=== PATIENT | female | born 1985 | race Caucasian/White ===

== ENCOUNTER 2021-09-26 09:29 | Outpatient (CLI) | payer BC, MEDICAID, SELFPAY ==
--- NOTE | 2021-09-26 09:45 | CRLHL7_ITS ---
For Patients: As a result of the Cures Act, medical imaging exams and procedure reports are released immediately into your electronic medical record. You may view this report before your referring provider. If you have questions, please contact your health care provider. INDICATION: Dates/viability. TECHNIQUE: Ultrasound OB pelvis abdominal. Real-time godoy-scale imaging of the pelvis was performed. COMPARISON: None. FINDINGS: There is a single intrauterine gestation. The embryo demonstrates a regular cardiac rate measuring 157 beats per minute. The embryo`s crown rump length measurement of 6.8 cm corresponds to a gestational age of 13 weeks 1 day with a sonographic due date of 04/02/2022. Yolk sac not visualized. There are no gross abnormalities noted within the embryo at this early state of development. The placenta has not yet developed. There is no sign of perigestational hemorrhage. The ovaries are of normal size. Right ovary measures 4.8 x 3.5 x 1.7 cm. Left ovary measures 3.9 x 3.9 x 2.1 cm. There are no suspicious fluid collections noted in the cul-de-sac. IMPRESSION: Single viable intrauterine measuring 13 weeks 1 day. Estimated date of delivery 04/02/2022. No abnormalities seen. Dictated by Ian Reyes MD @ 09/26/2021 10:53:16 AM (Electronically Signed)
== END 2021-09-26 09:30 | disposition home or self-care (01) ==
LOC: US 09:33
PROVIDERS: PCP Physician Assistant Medical; Visit Provider Advanced Practice Midwife
DX: Z34.91 Encounter for supervision of normal pregnancy, unspecified, first trimester (principal); Z3A.13 13 weeks gestation of pregnancy
CPT/HCPCS: 76801

== ENCOUNTER 2021-10-02 15:17 | Outpatient (CLI) | payer BC, MEDICAID, SELFPAY ==
[2021-10-02 18:02] LABS: Hepatitis B Surface Antigen* Negative (Negative)
[2021-10-02 18:12] LABS: HIV 1/2/P24 Combo Screen* Negative (Negative)
[2021-10-02 18:19] LABS: Hepatitis C Virus Antibody* Negative (Negative)
[2021-10-05 00:54] LABS: Rapid Plasma Reagin (RPR) Non Reactive (Non Reactive)
[2021-10-05 01:56] LABS: Rubella Antibody IgG 21.2 IU/mL
== END 2021-10-02 15:18 | disposition home or self-care (01) ==
PROVIDERS: PCP Physician Assistant Medical; Visit Provider Advanced Practice Midwife
DX: O09.522 Supervision of elderly multigravida, second trimester (principal); Z3A.14 14 weeks gestation of pregnancy
CPT/HCPCS: 86592; 86703; 86762; 86787; 86803; 86850; 86900; 86901; 87086; 87340

== ENCOUNTER 2021-10-03 09:29 | Outpatient (CLI) | payer BC, MEDICAID, SELFPAY ==
[2021-10-03 13:14] LABS: Chlamydia DNA Amplified* NOT DETECTED (No Detected); GC DNA Amplified* NOT DETECTED (No Detected)
== END 2021-10-03 09:30 | disposition home or self-care (01) ==
LOC: NFLDREF 09:29
PROVIDERS: PCP Physician Assistant Medical; Visit Provider Advanced Practice Midwife
DX: O09.522 Supervision of elderly multigravida, second trimester (principal)
CPT/HCPCS: 87491; 87591

== ENCOUNTER 2021-11-21 09:06 | Outpatient (CLI) | payer BC, OTHER, SELFPAY ==
--- NOTE | 2021-11-21 09:15 | CRLHL7_ITS ---
For Patients: As a result of the Century Cures Act, medical imaging exams and procedure reports are released immediately into your electronic medical record. You may view this report before your referring provider. If you have questions, please contact your health care provider. INDICATION: Evaluate anatomy. COMPARISON: 09/26/2021 TECHNIQUE: Real time godoy scale imaging of the fetus was performed as well as color Doppler analysis of the umbilical vessels. FINDINGS: Sonographic imaging demonstrates a single living intrauterine gestation. Fetus demonstrates a regular cardiac rate of 158 beats per minute. Fetus has a transverse position, head maternal right. The placenta lies posteriorly without evidence of placenta previa. The edge of the placenta is located 2.8 cm from the internal cervical os. Amniotic fluid volume appears normal. Single deepest vertical pocket: 3.3 cm. The cervix is closed and measures 4.5 cm in length. The composite ultrasound gestational age is calculated at 21 weeks 5 days with an estimated sonographic due date of 03/29/2022. The estimated weight is 427 grams which lies at the 63rd %. The following biometric measurements were obtained: Biparietal diameter: 5.2 cm/21 weeks 5 days 72nd% Head circumference: 19.2 cm/21 weeks 3 days 56th% Abdominal circumference: 16.4 cm/21 weeks 3 days 54th% Femur length: 3.6 cm/21 weeks 3 days 52nd% The HC/AC ratio measures: 1.17 range (1.06-1.24) On anatomic survey, there is a normal appearance of the cerebral ventricles, cavum septi pellucidi, cisterna magna and cerebellum. The nose, lips, and facial profile appear normal. The cervical, thoracic and lumbar spine are well visualized and appear normal. Incomplete visualization of the outflow tracts due to position. Four-chamber heart normal. The diaphragm and stomach appear normal. The kidneys and bladder also appear normal. There is a normal three-vessel cord and cord insertion site. The four extremities appear normal. IMPRESSION: Concordance of clinical and sonographic dating. Incomplete visualization of the outflow tracts. Short-term follow-up recommended. Remainder of the anatomic survey is normal. Dictated by Jimenez Goins MD @ 11/21/2021 10:59:49 AM (Electronically Signed)
== END 2021-11-21 09:07 | disposition home or self-care (01) ==
PROVIDERS: PCP Physician Assistant Medical; Visit Provider Advanced Practice Midwife
DX: Z34.92 Encounter for supervision of normal pregnancy, unspecified, second trimester (principal); Z3A.21 21 weeks gestation of pregnancy
CPT/HCPCS: 76805

== ENCOUNTER 2021-12-04 09:15 | Outpatient (CLI) | payer BC, MEDICAID, SELFPAY ==
--- NOTE | 2021-12-04 09:15 | CRLHL7_ITS ---
For Patients: As a result of the Century Cures Act, medical imaging exams and procedure reports are released immediately into your electronic medical record. You may view this report before your referring provider. If you have questions, please contact your health care provider. OBSTETRICAL ULTRASOUND FOLLOW-UP, 12/04/2021 CLINICAL HISTORY: Follow-up on missed anatomy (heart views). 3, para 2. KAILA by Ultrasound: 04/02/2022 Gestational Age: 23 weeks 0 days TECHNIQUE: Transabdominal pelvic ultrasound. FINDINGS: Cervix: Not visualized position: Vertex Amniotic fluid: 5.7 cm SDP Placenta position: Fundal, posterior, right wall heart rate: 152 bpm IMPRESSION: Single live intrauterine gestation with composite gestational age of 20 weeks 0 days and KAILA of 04/02/2022. Out flow tracts and 4 chamber views appear unremarkable. ARACELY CARABALLO M.D. Diagnostic/Breast Radiologist [email or web address] Transcribed: 1:[address]/Dictated by: Aracely Caraballo MD @ 12/04/2021 10:39:00 AM (Electronically Signed)
== END 2021-12-04 09:16 | disposition home or self-care (01) ==
LOC: US 09:15
PROVIDERS: PCP Physician Assistant Medical; Visit Provider Advanced Practice Midwife
DX: O36.8320 Maternal care for abnormalities of the fetal heart rate or rhythm, second trimester, not applicable or unspecified (principal)
CPT/HCPCS: 76815; 76816

== ENCOUNTER 2022-01-09 08:44 | Outpatient (CLI) | payer BC, MEDICAID, SELFPAY ==
[2022-01-10 10:21] LABS: Rapid Plasma Reagin (RPR) Non Reactive (Non Reactive)
== END 2022-01-09 08:45 | disposition home or self-care (01) ==
LOC: NFLDREF 08:45
PROVIDERS: PCP Physician Assistant Medical; Visit Provider Advanced Practice Midwife
DX: Z34.83 Encounter for supervision of other normal pregnancy, third trimester (principal); Z3A.28 28 weeks gestation of pregnancy
CPT/HCPCS: 86592

== ENCOUNTER 2022-02-27 11:45 | Outpatient (RCR) | payer BC, MEDICAID, SELFPAY | END 2022-05-07 15:03 | disposition home or self-care (01) | PROVIDERS: PCP Physician Assistant Medical; Visit Provider Advanced Practice Midwife | DX: M54.9 Dorsalgia, unspecified (principal); Z51.89 Encounter for other specified aftercare | CPT/HCPCS: 97110; 97112; 97140; 97162 ==

== ENCOUNTER 2022-03-13 09:40 | Outpatient (CLI) | payer BC, MEDICAID, SELFPAY ==
[2022-03-14 13:50] LABS: Strep B DNA Probe NEGATIVE (Negative)
[2022-03-14 14:15] LABS: Strep B Pen/Amox Allergy No
== END 2022-03-13 09:41 | disposition home or self-care (01) ==
PROVIDERS: PCP Physician Assistant Medical; Visit Provider Advanced Practice Midwife
DX: O09.523 Supervision of elderly multigravida, third trimester (principal); Z3A.37 37 weeks gestation of pregnancy
CPT/HCPCS: 87081; 87653

== ENCOUNTER 2022-04-09 09:28 | Outpatient (CLI) | payer BC, MEDICAID, SELFPAY ==
--- NOTE | 2022-04-09 09:45 | CRLHL7_ITS ---
For Patients: As a result of the Century Cures Act, medical imaging exams and procedure reports are released immediately into your electronic medical record. You may view this report before your referring provider. If you have questions, please contact your health care provider. INDICATION: POST DATES COMPARISON: none TECHNIQUE: Real time godoy scale imaging of the fetus was performed. Without non-stress testing. FINDINGS: Sonographic imaging demonstrates a single living intrauterine gestation. Fetus demonstrates a regular cardiac rate of 143 beats per minute. Fetus has a vertex position. The amniotic fluid volume appears normal and there is a single deepest pocket measurement of 4.8 cm. The fetus was active and demonstrated normal breathing movements. There was normal flexion and extension of the trunk and extremities. IMPRESSION: Normal biophysical profile score of 8 out of 8. Dictated by Jimenez Goins MD @ 04/09/2022 11:07:09 AM (Electronically Signed)
== END 2022-04-09 09:29 | disposition home or self-care (01) ==
LOC: US 09:29
PROVIDERS: PCP Physician Assistant Medical; Visit Provider Advanced Practice Midwife
DX: O48.0 Post-term pregnancy (principal); Z3A.41 41 weeks gestation of pregnancy
CPT/HCPCS: 76819

== ENCOUNTER 2022-04-13 05:08 | Inpatient (IN) | payer BC, MEDICAID, SELFPAY ==
[2022-04-13] VITALS (25 sets, daily range): BP systolic 101–162; BP diastolic 61–87; PULSE 76–107; RESP 14–18; TEMP 36.6–37.2; O2SAT 96–98; BMI 28.5
--- NOTE | 2022-04-13 05:16 | P.LDBA_ITS ---
Subjective History of Present Illness Date Seen: 04/13/22 Narrative: Patient is being admitted to Labor and Delivery for active labor post . She is a 36 year old at 41.2 weeks gestation. Her full history and physical was dictated by Tito Palm CNM and ZULEIKA Castro on 03/13/22. Please see this for details. She began mauro regularly around 1999 last evening. they have been increasing in frequency overnight. She denies leaking fluid and has noticed a scant amount of bloody show. She is appreciating good movement. 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 Incomplete anatomy scan, outflow tracts not seen, heart WNL. F/u u/s 12/04/21 - heart well visualized, all WNL - reviewed w/ pt at appointment OB - Problem Based A/P Additional Plan (1) Post-dates : Status: Acute (2) AMA (advanced maternal age) multigravida 35+: Status: Acute Plan ASSESSMENT:? at 41.2 weeks gestation? GBS negative Uncomplicated ? Labor postterm ?? PLAN:? 1. Candidate for analgesia of choice. Planning unmedicated .? 2. Anticipate ? 3. Expectant management at this time.? 4. No IV necessary at this time.Consider placement if condition changes. 5. Intermittent monitoring after a reactive tracing per unit policy. ? ? Delivery/Labor/Induction Plan Plan: expectant management OB Result Labs Blood Type: A (+) positive GBS Status: negative OB Exam Physical Exam Vital signs: Pulse BP Pulse Ox 105 H 160/87 H 96 04/13/22 04:56 04/13/22 04:56 04/13/22 04:55 Narrative: Vitals per EMR? Psychiatric:? Alert and oriented x3? HEENT:? Normocephalic, atraumatic? Neck:? Supple without adenopathy or thyromegaly? Lungs:? Clear to auscultation bilaterally? Heart:? Regular rate and rhythm, no murmur, rub or gallop? Abdomen:? Soft, nontender, and gravid? Extremities:? No edema or erythema? Detailed Labor and Delivery Exam Patient Gravid: Yes Dilation (cm): 7 Effacement (%): 90 Cervix position: mid Consistency: soft Contraction Frequency: 2-4 Tachysystole: No Contraction intensity: Strong/Firm Fetus (Single) Station: -2 Position: Other (vertex) Amniotic Membrane Status: intact (bulging) Heart Rate Baseline: 125 Monitor Accelerations: Present Monitor Decelerations: Variable [facility] Variability: Moderate (6-25)
[2022-04-13] MEDS: OXYTOCIN 10 UNIT/ML INJ IM (09:02)
[2022-04-13] MEDS: LIDOCAINE 1 % PF 30 ML INJECTION (09:45)
--- NOTE | 2022-04-13 10:16 | PM.OBPRCVD ---
Documented by User: Maria Isabel Manrique CNM 04/13/22 14:40 Procedure Delivery date: 04/13/22 Procedure Done: Global Procedure Details: Patient is a 36 year-old G3 now P3 admitted on 04/13/22 at 41 Weeks, 2 Days gestation for active labor.? Cervical exam on admission was 7 cm/90 % effaced/-2 station with membranes intact in vertex presentation.? Contractions were every 3-4 minutes.? heart rate demonstrated baseline 120 bpm with moderate variability, - accelerations (10x10 accels only), - decelerations; a category 1 tracing.? SROM occurred at 0535 with clear fluid.?She labored in the tub for a while and when she felt the urge to push she exited the tub and sat on the birthing stool. She labored on the birthing stool. hands and knees, standing and on her side. She declined a SVE when she first starting feeling the urge to push. After about 30-45 minutes of pushing some labial separation was noted with pushing. However about 0800 she requested to be checked as she was tired, feeling discouraged and feeling like she wasn't making progress. Baby was found to still be in a +2 station at that time. Position changes were encouraged including sitting on the toilet, puppy pose, lift and tucks, and more. She continued to labor and did get back into the tub after this for about 15 minutes. She then felt uncomfortable in the tub and got out and went back to the birthing stool. She then started to feel a stronger urge and more pressure. Shortly after she was found to be crowing and delivered in 1 push after. A loose nuchal cord was discovered after of the head but baby was delivered before it could be reduced. It easily slipped down the body. She walked to the bed after the baby was delivered per her request. The placenta delivered easily but did have trailing membranes that were teased out with a ring forceps. There was a large tear discovered on inspection that was suspicious for a 3rd degree so the on-call MD was called to the room to consult. It was determined to be a 3rd degree and was repaired by Dr. Watson. ?? Labor Analgesia:? None? ?? Pitocin:? Yes after delivery only? ?? Labor onset:? 04/12/22 at 2000? ?? Complete:? presumed complete with pushing? ?? Pushing:? 0633? ?? heart tones during second stage were category 2. Moderate variability, variables with good return to baseline. Decision to remove monitor and Doppler after a period of good tracing.? ?? At 0857 a viable male delivered in vertex NABIL presentation over intact perineum via spontaneous vaginal delivery.? was placed on maternal abdomen.? Cord was clamped and cut after >5 minute delay.? Infant weight pending.? 8 at 1 minute and 9 at 5 minutes.? Shoulder dystocia: no.? Nuchal cord: yes x1, delivered through the cord.? ?? Placenta delivered spontaneously and complete at 0906 with a 3 vessel cord.?She had trailing membranes that were teased out with a ring forceps. It appeared as though they all came out intact. ?? Mother and were stable after delivery.? ?? Lacerations:? 3rd degree, repaired by Dr. Watson. see her note for details.? ?? Blood loss: 550 mL.? Blood loss measurement type: QBL 500, EBL 50? Sponge and needles counts are correct.? Events: AMA Intrapartal Events: None Delivery monitor: external FHT and external uterine Route of delivery: Episiotomy description: None Laceration description: Perineal - 3rd Degree (repaired by Dr. Watson) Delivery repair: Vicryl Estimated blood loss (mL): 550 Anesthesia type: None Disposition: floor [place] Infant Gender: Male presentation: vertex Placental Delivery Description: Spontaneous Cord Description: 3 Vessels, Nuchal Cord (delivered through) and Loose OB Vag Delivery Procedures Additional Procedures NST: Yes Laceration Repair: Yes Documented by User: Maria Isabel Watson DO 04/13/22 11:48 Procedure Narrative: Perineum and vagina injected with 40 mL of lidocaine to allow for proper and thorough examination of laceration. arterial blood vessel was identified to be actively bleeding into the retracted portion of levator ani muscle space. 3 degree vaginal / perineal laceration repaired with approximation of levator ani muscle X 3 figure of eight stitches of 2-0 vicryl. single digit was then placed in anus to confirm that patient had excellent tone of anal sphincter, that there was no involvement of rectal mucosa and that no stitching traversed from vagina into rectum. Once the levator ani muscle was approximated, the remaining 2nd degree perineal laceration was repaired in standard fashion with 2-0 and 3-0 vicryl. additional sulcus laceration was approximated with 2-0 vicryl in running locked fashion from the left vagina near cervix to the perineum. + hemostasis noted at termination of repair. EBL from repair was 300 mL. Maria Isabel Watson DO
[2022-04-13 11:44] LABS: SARS PCR* Negative SARS-CoV-2 (Negative)
[2022-04-13] MEDS: IBUPROFEN 600 MG TABLET PO ×3 (12:34→23:43)
[2022-04-13] MEDS: DOCUSATE SODIUM 100 MG CAPSULE PO (15:27)
[2022-04-13] MEDS: ACETAMINOPHEN 500 MG TABLET 1000 MG PO ×2 (15:27→22:02)
[2022-04-13] MEDS: polyethylene glycoL 3350 17 GM PACK PO (22:02)
[2022-04-14 00:01] VITALS: BP 107/62; PULSE 66; RESP 16; TEMP 37.2; O2SAT 97
[2022-04-14 04:00] VITALS: BP 106/63; PULSE 70; RESP 16; TEMP 36.5; O2SAT 97
[2022-04-14] MEDS: ACETAMINOPHEN 500 MG TABLET 1000 MG PO (04:03)
[2022-04-14] MEDS: LANOLIN CREAM 1 APPLIC TOPICAL (04:19)
[2022-04-14] MEDS: IBUPROFEN 600 MG TABLET PO ×3 (06:51→19:39)
[2022-04-14 08:44] VITALS: BP 118/74; PULSE 82; RESP 16; O2SAT 97
[2022-04-14] MEDS: DOCUSATE SODIUM 100 MG CAPSULE PO ×2 (08:48→20:05)
--- NOTE | 2022-04-14 10:15 | PM.OBPNVD1 ---
OB - PN:Subj Subjective Date Seen: 04/14/22 Patient comments OB post-: no complaints, pain well controlled and tolerating diet infant status: Narrative: The patient is a 36-year-old 3 now para 3003 who is status post a spontaneous vaginal delivery yesterday complicated by third-degree perineal laceration. The on-call aircraft engine installer performed the laceration repair. OB - PN: Obj Exam Physical Exam: Vital signs: Temp Pulse Resp BP Pulse Ox O2 Del Method 97.7 F 82 16 118/74 97 04/14/22 04:00 04/14/22 08:44 04/14/22 08:44 04/14/22 08:44 04/14/22 08:44 04/14/22 04:00 Constitutional: Constitutional: no acute distress Routine Abdominal Exam: Abdominal: Present soft Fundus: Present firm Routine Exam: External: Present lacerations (Repair of perineum intact), swelling (Edema of the right perineum) and vulvar erythema (Slight erythema without hematoma of the right perineum) Perineum Description: Edematous OB - PN: Obj Data Labs Labs: Laboratory Results - last 24 hr 04/13/22 10:37 SARS-CoV-2 (PCR) Negative SARS-CoV-2 OB - PN: A/P Vaginal Delivery Assessment and Plan (1) Status post normal vaginal delivery: Status: Acute (2) Third degree laceration of perineum during delivery, : Status: Acute Plan day: 1 Plan: routine care
[2022-04-14 16:17] VITALS: BP 127/78; PULSE 69; RESP 16; O2SAT 97
[2022-04-14 19:41] VITALS: BP 117/72; PULSE 65; RESP 16; TEMP 36.6; O2SAT 99
[2022-04-14] MEDS: polyethylene glycoL 3350 17 GM PACK PO (20:44)
[2022-04-15] MEDS: IBUPROFEN 600 MG TABLET PO ×2 (01:36→08:16)
[2022-04-15 04:24] VITALS: BP 110/67; PULSE 65; RESP 16; TEMP 36.9; O2SAT 98
[2022-04-15 08:00] VITALS: BP 112/70; PULSE 65; RESP 16; TEMP 36.9; O2SAT 98
--- NOTE | 2022-04-15 08:02 | PM.OBDSVD1 ---
DS: Providers Provider Time Seen by Provider: 08:02 Date Seen: 04/15/22 Date of admission: 04/13/22 05:08 Primary care physician: Jessy Olmos PA-C Admitting Clinician: Maria Isabel Manrique CNM Attending Physician on discharge: Nani Dominguez CNM Date of Discharge: 04/15/22 DS: Diagnosis Discharge Diagnosis (1) Third degree laceration of perineum during delivery, : Status: Acute (2) Status post normal vaginal delivery: Status: Acute (3) (): Status: Acute Exam Narrative: Exam Narrative: Objective: VSS, afebrile GENERAL APPEARANCE: ?normal affect, alert, no distress MOOD: ?appropriate HEENT: normocephalic, neck supple, full ROM CHEST: ?Symmetrical chest wall movement. ?Normal respiratory effort. ?Clear to auscultation HEART: ?regular rate and rhythm ABDOMEN: ?soft, non-tender. Uterine fundus is firm, 1 above Umbilicus, Midline and is appropriate for the stage of recovery. ?Bowel sounds present. PERINEUM:?mild edema of the perineum, there is a 3rd degree laceration that is healing well. EXTREMITIES: ?normal and no edema Const: Vital Signs, click to edit/add: Vital Signs - 24 hr 04/14/22 08:44 04/14/22 16:17 04/14/22 19:41 Temperature 97.9 F Pulse Rate [Pulse Oximeter] 82 69 65 Respiratory Rate 16 16 16 Blood Pressure [Le ft Arm] 118/74 127/78 117/72 Pulse Oximetry 97 97 99 Oxygen Delivery Me thod Room Air Room Air 04/15/22 04:24 Temperature 98.4 F Pulse Rate [Pulse Oximeter] 65 Respiratory Rate 16 Blood Pressure [Le ft Arm] 110/67 Pulse Oximetry 98 Oxygen Delivery Me thod Room Air Documenting provider has reviewed patient's vital signs: yes OB - DS: Summary Hospital Course Hospital Course: Subjective: Chelsey is a 36 y.o. G3 now P3 who was admitted to L & D for active labor. ?She had an spontaneous vaginal delivery complicated by a 3rd degree perineal laceration, repaired by the MD.. The patient feels well. ?The pain is well controlled with current medications. ?She has no new complaints. ?She is breast feeding and reports things are going well.? the patient has done well.? Vitals have been stable.? She has remained afebrile.? Has a good appetite, is tolerating a general diet. ?She is voiding without difficulty.? She is passing gas and has not had a bowel movement.?She is very nervous about the first bowel movement because of the 3rd degree laceration/repair. Discussed increased fiber and water, continuing with the colace and miralax, and trying to relax and take her time. Reviewed signs and symptoms of infection. She is ambulating and denies any dizziness.? Has a small amount of rubra lochia. ?She is planning natural family planning, but also considering other options for prevention. Assessment: G3 now P3 Lactating Mother 3rd degree perineal, repaired plan: Discharge home with baby. Follow up in 2 weeks and 6 weeks in clinic. , may follow up with if needed Continue Colace BID and miralax daily Peripartum Data delivery method: Vaginal Laceration description: Perineal - 3rd Degree complications: none [place] Gender: Male (Gera Rubi) Infant Discharge Plan: Home Status at Discharge Functional status at discharge: independent ambulation Overall status at discharge: patient is progressing back to baseline Time Spent with Patient Time attestation: Total time spent providing and/or coordinating discharge services: Time spent: Less than 30 minutes Discharge Plan Discharge Disposition: Home, Self-Care Date of Admission: 04/13/22 05:08 Attending Provider on Discharge: Nani Dominguez Primary Care Provider: Jessy Olmos Condition: Stable Anticipated Discharge Date/Time: 04/15/22 08:08 Discharge Medications: New acetaminophen 500 mg Tablet 1,000 mg PO Q6H PRN (Reason: pain/fever) Qty: 0 0RF docusate sodium 100 mg Capsule 100 mg PO BID 42 Days Qty: 100 0RF polyethylene glycol 3350 [Miralax] 17 gram Powder In Packet 17 g PO DAILY 42 Days Qty: 30 0RF Rx Instructions: Continue as necessary for constipation. ibuprofen 600 mg Tablet 600 mg PO Q6H PRNQty: 60 0RF Continued prenat.vits,carlos,iyz-byyd-rvxif Tablet 1 tab PO QDAY ferrous sulfate 300 mg (60 mg iron)/5 mL liquid 300 mg PO QDAY Discharge Orders: Discharge Order (Routine); Ordered 04/15/22 Ordered By: Nani Dominguez Patient Education: OB Over the Counter Medication Information, OB Vaginal/Breast Feeding Activity Level: Activity as Tolerated Activity Detail: 2 & 6 week visits Discharge Diet: Regular Follow Up Appointments: [facility] [Provider Group] Nani Dominguez CNM [Certified Nurse Quality Assurance Technician] - Jessy Olmos PA-C [Primary Care Provider] - Forms: [facility] Info Instructions
[2022-04-15] MEDS: DOCUSATE SODIUM 100 MG CAPSULE PO (08:17)
[2022-04-15] MEDS: polyethylene glycoL 3350 17 GM PACK PO (08:35)
== END 2022-04-15 10:40 | disposition home or self-care (01) | DRG 560 ==
LOC: OB OUT 05:08 → OB 05:08
PROVIDERS: Admitting Provider Advanced Practice Midwife; PCP Physician Assistant Medical; Visit Provider Advanced Practice Midwife
DX: O70.20 Third degree perineal laceration during delivery, unspecified (principal); Z37.0 Single live birth; Z3A.41 41 weeks gestation of pregnancy; O48.0 Post-term pregnancy
CPT/HCPCS: 87635; A9270; J2001; J2590

== ENCOUNTER 2022-04-23 10:46 | Emergency (ER) | payer BC, MEDICAID, SELFPAY ==
[2022-04-23] VITALS (38 sets, daily range): BP systolic 123–140; BP diastolic 77–99; PULSE 114–257; RESP 22; TEMP 36.9; O2SAT 90–100; BMI 25.0
--- NOTE | 2022-04-23 11:35 | ED.GENADULT ---
HPI - General Adult General Time Seen by Provider: 11:35 Date Seen: 04/23/22 Chief complaint: Shortness of Breath/Dyspnea Stated complaint: Post shortness of breath/chest pain Time Seen by Provider: 04/23/22 11:15 Source: patient and RN notes reviewed Mode of arrival: ambulatory Limitations: no limitations History of Present Illness HPI narrative: Patient is a 36-year-old female coming in with fevers, shortness of breath, diminished appetite, chest and abdominal pain. She noted Friday of last week she started having pain in her abdomen and chest. She has been short of breath through this. She had fevers that were almost straight for a few days, have been less recently, more at night. No urinary symptoms. She had her 3rd child via on April 13. She states her peroneal laceration is healed. She is not having any significant purulent vaginal discharge. No urinary symptoms. Not really having any cough. She has been trying Tylenol and ibuprofen. She is . She does feel like she is able to drink fluids enough to produce breast milk. She is tearful and crying because of the pain. She does admit that she is worried about blood clots. Related Data Home Medications Medication Instructions Recorded Confirmed ferrous sulfate 300 mg (60 mg 300 mg PO QDAY 01/09/22 04/13/22 iron)/5 mL oral liquid prenat.vits,carlos,tum-ynyp-dcncv 1 tab PO QDAY 01/09/22 04/13/22 Previous Rx's Medication Instructions Recorded acetaminophen 500 mg tablet 1,000 mg PO Q6H PRN pain/fever #0 04/15/22 tabs docusate sodium 100 mg capsule 100 mg PO BID Stool Softener 6 04/15/22 weeks #100 caps ibuprofen 600 mg tablet 600 mg PO Q6H PRN #60 tabs 04/15/22 polyethylene glycol 3350 17 gram 17 g PO DAILY Prevent Consitpation 04/15/22 oral powder packet (Miralax) 6 weeks #30 ea Allergies Allergy/AdvReac Type Severity Reaction Status Date / Time No Known Allergies Allergy Unknown Verified 04/12/22 10:23 Review of Systems Status of ROS: Reports: 10 or more systems reviewed and unremarkable except as noted in History and below [facility] Medical History (Updated 04/23/22 @ 17:08 by Janelle Rubio MD) History of shoulder dystocia Vaginal delivery Surgical History No pertinent past surgical history Family History Father Dementia Maternal Grandmother Diabetes Mother Pulmonary embolism Family/Other Breast cancer Social History (Updated 04/23/22 @ 16:24 by Sarahi Bardales MD) Narrative: SOCIAL? She lives in [facility] with her and 3 kids, ages 6, 3, and 10 days. 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 Lives with: Gera & kids? Pets: not yet? Abuse: Denies past/present, feels safe with Special Diet: Vegetarian, no eggs, meat or fish? Ok with a blood transfusion: yes? Culture or catholic beliefs: denies? RISK FACTORS? 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 Depression/Anxiety: denies? Seat Belt Use: Routinely Smoking: Denies past/present? Alcohol/day: Denies while ? Caffeine: denies? Drug Use: Denies past/present? Chicken Pox: Yes as a child (positive titer) MRSA: Denies? Smoking Status: Never smoker How often do you have a drink containing alcohol: never AUDIT-C Alcohol total score: 0 Non-prescribed substance use: denies use Little interest or pleasure in doing things: not at all Feeling down, depressed, or hopeless: not at all service: No Exam Const: Vital Signs, click to edit/add: Vital Signs - 24 hr 04/23/22 11:00 04/23/22 11:46 04/23/22 10:59 Temperature 98.4 F Pulse Rate 122 H Pulse Rate [Left P ulse Oximeter] 130 H Respiratory Rate 22 Blood Pressure 140/88 H Blood Pressure [Le ft Upper Arm] 140/88 H Pulse Oximetry 94 100 93 Oxygen Delivery Me thod Room Air Oxygen Flow Rate 04/23/22 11:00 04/23/22 11:01 04/23/22 11:15 Temperature Pulse Rate 122 H 122 H 120 H Pulse Rate [Left P ulse Oximeter] Respiratory Rate Blood Pressure 126/80 Blood Pressure [Le ft Upper Arm] Pulse Oximetry 96 95 96 Oxygen Delivery Me thod Oxygen Flow Rate 04/23/22 11:30 04/23/22 11:31 04/23/22 11:45 Temperature Pulse Rate 118 H 114 H 121 H Pulse Rate [Left P ulse Oximeter] Respiratory Rate Blood Pressure 127/77 Blood Pressure [Le ft Upper Arm] Pulse Oximetry 96 95 95 Oxygen Delivery Me thod Oxygen Flow Rate 04/23/22 12:00 04/23/22 12:20 04/23/22 12:21 Temperature Pulse Rate 122 H 124 H 120 H Pulse Rate [Left P ulse Oximeter] Respiratory Rate Blood Pressure 129/81 Blood Pressure [Le ft Upper Arm] Pulse Oximetry 94 97 95 Oxygen Delivery Me thod Oxygen Flow Rate 04/23/22 12:41 04/23/22 12:45 04/23/22 13:00 Temperature Pulse Rate 120 H 118 H 118 H Pulse Rate [Left P ulse Oximeter] Respiratory Rate Blood Pressure Blood Pressure [Le ft Upper Arm] Pulse Oximetry 94 96 94 Oxygen Delivery Me thod Oxygen Flow Rate 04/23/22 13:05 04/23/22 13:09 04/23/22 13:15 Temperature Pulse Rate 122 H 116 H 123 H Pulse Rate [Left P ulse Oximeter] Respiratory Rate Blood Pressure 123/78 Blood Pressure [Le ft Upper Arm] Pulse Oximetry 96 96 94 Oxygen Delivery Me thod Oxygen Flow Rate 04/23/22 13:30 04/23/22 13:31 04/23/22 13:45 Temperature Pulse Rate 119 H 120 H 121 H Pulse Rate [Left P ulse Oximeter] Respiratory Rate Blood Pressure 129/89 Blood Pressure [Le ft Upper Arm] Pulse Oximetry 95 95 94 Oxygen Delivery Me thod Oxygen Flow Rate 04/23/22 14:00 04/23/22 14:01 04/23/22 14:02 Temperature Pulse Rate 119 H 123 H 123 H Pulse Rate [Left P ulse Oximeter] Respiratory Rate Blood Pressure 139/91 H Blood Pressure [Le ft Upper Arm] Pulse Oximetry 95 95 94 Oxygen Delivery Me thod Oxygen Flow Rate 04/23/22 14:19 04/23/22 14:30 04/23/22 14:33 Temperature Pulse Rate 257 H 249 H 249 H Pulse Rate [Left P ulse Oximeter] Respiratory Rate Blood Pressure Blood Pressure [Le ft Upper Arm] Pulse Oximetry 93 95 94 Oxygen Delivery Me thod Oxygen Flow Rate 04/23/22 14:41 04/23/22 14:45 04/23/22 15:00 Temperature Pulse Rate 122 H 125 H 128 H Pulse Rate [Left P ulse Oximeter] Respiratory Rate Blood Pressure 131/81 Blood Pressure [Le ft Upper Arm] Pulse Oximetry 94 92 90 Oxygen Delivery Me thod Oxygen Flow Rate 04/23/22 15:01 04/23/22 15:15 04/23/22 15:30 Temperature Pulse Rate 127 H 128 H 127 H Pulse Rate [Left P ulse Oximeter] Respiratory Rate Blood Pressure 131/90 H Blood Pressure [Le ft Upper Arm] Pulse Oximetry 91 92 90 Oxygen Delivery Me thod Nasal Cannula Oxygen Flow Rate 2 04/23/22 15:45 04/23/22 16:00 04/23/22 16:01 Temperature 98.4 F Pulse Rate 125 H 122 H 125 H Pulse Rate [Left P ulse Oximeter] Respiratory Rate Blood Pressure 136/93 H Blood Pressure [Le ft Upper Arm] Pulse Oximetry 95 97 96 Oxygen Delivery Me thod Nasal Cannula Nasal Cannula Oxygen Flow Rate 2 2 04/23/22 16:15 04/23/22 16:30 04/23/22 16:32 Temperature Pulse Rate 127 H 133 H 134 H Pulse Rate [Left P ulse Oximeter] Respiratory Rate Blood Pressure 140/99 H Blood Pressure [Le ft Upper Arm] Pulse Oximetry 91 91 91 Oxygen Delivery Me thod Oxygen Flow Rate Documenting provider has reviewed patient's vital signs: yes Common normals: average body habitus, oriented x3, no limitations, healthy appearing, alert and well nourished General appearance: cooperative, well kempt and well developed Other: Seemed to have a couple episodes of pain while I was in with her, did seem a bit tachypneic at times. She is tearful at times. HENMT: Common normals: normocephalic, head/scalp atraumatic, hearing grossly normal bilaterally, external ears normal, external nose normal, nasal mucous membranes and turbinates normal, moist oral mucous membranes, oropharynx normal, dentition normal and gingiva normal Head and scalp: normocephalic and atraumatic Nose: external nose normal and nasal mucous membranes and turbinates normal External ear: external ears normal Eye: Common normals: PERRL, EOMs intact bilaterally, conjunctivae normal and no scleral icterus Conjunctiva: conjunctiva(e) normal Pupil: PERRL Neck & C-Spine: Common normals: full ROM, no lymphadenopathy, supple, no meningeal signs, no JVD and thyroid normal Thyroid: thyroid normal Chest: Common normals: inspection of chest normal and palpation of chest normal Resp: Common normals: no retractions, no use of accessory muscles and clear to auscultation bilaterally Effort & inspection: able to speak in complete sentences, symmetric chest movement and tachypneic Auscultation: clear to auscultation bilaterally Cardio: Common normals: no JVD, regular rhythm, S1 normal heart sound, S2 normal heart sound, no gallops, no clicks and no murmurs Rate: tachycardic Rhythm: regular rhythm Heart sounds: S1 normal and S2 normal GI: Other: Abdomen is gravid. Seems to have more upper abdominal pain on palpation but no rebound or guarding. There is maybe some mild tenderness over the uterine fundus, she is at the umbilicus for uterine fundus. Extremity: Common normals: normal to inspection and full ROM Other: Calves are nontender on palpation, no definite pitting edema. Neuro: Common normals: oriented x3, CN's II-XII intact bilaterally, moves all extremities, no focal motor deficits and no sensory deficits noted Sensorium/orientation: alert Meningeal signs: no meningeal signs Psych: Appearance: well kempt Course Course Hospital Course: Patient will be monitored on cardiac monitoring and pulse oximetry. I have reviewed with her and her that infectious etiology with such things as endomyometritis, possible pneumonia, viral etiologies like influenza and COVID are all possibilities. Likewise we need to consider thromboembolic possibilities and we will proceed with chest CT PE protocol. With shortness of breath cardiac issues such as post Cardiomyopathy, myocarditis maybe possibilities. We will consider these multiple etiologies and guide therapy accordingly. We are also getting blood cultures. Urinary sources could be of focus of infection as well. She is tachycardic but not hypotensive. On arrival her respiratory rate was lower but she was more tachypneic when I was talking to her but was having pain. We are going to give her a L of normal saline over 2 hours and watch her closely, make sure that it is not worsening her respiratory status. We will try a dose of Toradol 15 mg IV to see if it helps with her pain. At the end of my discussion with her I did note that her oximetry was down to 91% with a good waveform. We will continue to monitor her closely. Reevaluation(s) Reevaluation #1: Patient is having increasing right flank pain. I have ordered morphine and Zofran. Have reviewed her CT reports with her. The radiologist had called and verbally reviewed all the findings with me. There are a plethora of findings including pulmonary edema possible left lower lobe pneumonia. Gaseous distention of stomach and some nonspecific loops of small bowel, possible sending endometritis and secondary peritonitis with secondary inflammation of the appendix. There is streaky changes around the right kidney. She has free fluid. IA will be initiating Zosyn, I have reviewed with her that there may be other antibiotics coming including but not limited to vancomycin. This may be an early septic picture. Her blood pressure is still quite well. She is mildly tachycardic. There were no central pulmonary emboli seen. I did call Dr. Bardales at 2:20 p.m. she will be consulting. I will be talking to the hospitalist as well. Will place a Graves catheter to get a definitive urinalysis, also allow for close fluid management. Time: 14:34 Reevaluation #2: Did a bedside ultrasound briefly of her heart. She has hyperdynamic function, no concern for reduced function that would be consistent with a cardiomyopathy. Patient was having escalating pain but it appears the dilaudid I ordered is helping her. We are checking on possibility for transfer as I am concerned about her. Time: 15:20 Reevaluation #3: Did speak with her general surgeon who muscle stop by to see the patient. Fortunately we were finally able to get acceptance to [place]. Had spoken with [facility] and had a 15 minute phone conversation only to find out that they would not be able to take the patient as she did not qualify for trauma and they would not accept her to the ICU. We did attempt to wait list her at [facility] which was 4-8 hours, concerns there were with a developing Blizzard that is anticipated here. Patient did become hypoxic when her Graves catheter was placed, did rebound with 2 L nasal cannula oxygen into the low 90s and sitting upright. She states tachycardic but otherwise blood pressure maintained. Time: 17:02 Vital Signs Vital signs: Initial Vital Signs Pulse Rate 122 H 04/23/22 10:59 Blood Pressure 140/88 H 04/23/22 10:59 Blood Pressure Mean 105 04/23/22 10:59 Pulse Oximetry 93 04/23/22 10:59 Vital Signs Pulse Rate 122 H 04/23/22 10:59 Blood Pressure 140/88 H 04/23/22 10:59 Pulse Oximetry 93 04/23/22 10:59 Temperature 98.4 F 04/23/22 16:00 Pulse Rate 134 H 04/23/22 16:32 Respiratory Rate 22 04/23/22 11:00 Blood Pressure 140/99 H 04/23/22 16:32 Pulse Oximetry 91 04/23/22 16:32 Oxygen Delivery Method 04/23/22 16:00 Oxygen Flow Rate 2 04/23/22 16:00 Medical Decision Making Lab Data Lab results reviewed: Yes I reviewed the patient's lab results Labs: Lab Results 04/23/22 04/23/22 04/23/22 Range/Units 12:05 12:05 12:05 WBC 23.77 H (4.50-11.00) K/uL RBC 4.24 (4.00-5.20) m/uL Hgb 11.2 L (12.0-16.0) gm/dL Hct 33.8 (33.0-51.0) % MCV 80 (80-100) fL MCH 26 (26-34) pg MCHC 33 (32-36) gm/dL RDW Coeff of Jimmie 17.0 H (11.5-15.5) % Plt Count 320 (140-440) K/uL Neut % (Auto) 93.4 H (42.0-72.0) % Lymph % (Auto) 1.0 L (20-44) % [place] % (Auto) 0.8 (0.0-11.0) % Eos % (Auto) 0.0 (0.0-7.0) % Baso % (Auto) 0.0 (0.0-3.0) % Neut # (Auto) 22.20 H (1.7-7.0) K/uL Lymph # (Auto) 0.20 L (0.90-2.90) K/uL [place] # (Auto) 0.20 (0.00-0.90) K/UL Eos # (Auto) 0.00 (0.00-0.50) K/uL Baso # (Auto) 0.00 (0.00-0.30) K/uL Diff Slide Review Acceptable Review (Acceptable) ESR 89 H (2-20) mm/hr D-Dimer Quant (PE/DVT) 3.14 H (0.00-0.50) ug/ml VBG pH (7.32-7.43) VBG pCO2 (40-50) mmHG VBG pO2 (25-47) mmHG VBG HCO3 (21-28) mmol/L Sodium (135-149) mmol/L Potassium (3.6-5.1) mmol/L Chloride (96-114) mmol/L Carbon Dioxide (20-32) mmol/L BUN (5-24) mg/dL Creatinine (0.5-1.5) mg/dL Estimated Creat Clear Estimated GFR ml/min Glucose (60-115) mg/dL Lactate (0.5-1.9) mmol/L Calcium (8.4-10.6) mg/dL Total Bilirubin (0.1-1.5) mg/dL AST (12-35) U/L ALT (4-35) U/L Alkaline Phosphatase (40-150) U/L Troponin I (0.01-0.04) ng/mL C-Reactive Protein (0.5-1.0) mg/dL NT-Pro-B Natriuret Pep pg/mL Total Protein (6.0-8.3) g/dL Albumin (3.3-5.0) g/dL Urine Color (Yellow) Urine Appearance (Clear) Urine pH (5.0-8.5) Ur Specific Perkins (1.000-1.030) Urine Protein (Negative) Urine Glucose (UA) (Negative) Urine Ketones (Negative) Urine Blood (Negative) Urine Nitrite (Negative) Urine Bilirubin (Negative) Urine Urobilinogen (0.2-1.0) Ur Leukocyte Esterase (Negative) Urine RBC (0-2) Urine WBC (0-5) Ur Squamous Epith Cells (None-Few) Urine Bacteria (None) SARS-CoV-2 (PCR) (Negative) Influenza Type A (PCR) (Negative) Influenza Type B (PCR) (Negative) RSV (PCR) (Negative) 04/23/22 04/23/22 04/23/22 Range/Units 12:05 12:05 12:05 WBC (4.50-11.00) K/uL RBC (4.00-5.20) m/uL Hgb (12.0-16.0) gm/dL Hct (33.0-51.0) % MCV (80-100) fL MCH (26-34) pg MCHC (32-36) gm/dL RDW Coeff of Jimmie (11.5-15.5) % Plt Count (140-440) K/uL Neut % (Auto) (42.0-72.0) % Lymph % (Auto) (20-44) % [place] % (Auto) (0.0-11.0) % Eos % (Auto) (0.0-7.0) % Baso % (Auto) (0.0-3.0) % Neut # (Auto) (1.7-7.0) K/uL Lymph # (Auto) (0.90-2.90) K/uL [place] # (Auto) (0.00-0.90) K/UL Eos # (Auto) (0.00-0.50) K/uL Baso # (Auto) (0.00-0.30) K/uL Diff Slide Review (Acceptable) ESR (2-20) mm/hr D-Dimer Quant (PE/DVT) (0.00-0.50) ug/ml VBG pH 7.333 (7.32-7.43) VBG pCO2 37 L (40-50) mmHG VBG pO2 43.7 (25-47) mmHG VBG HCO3 20 L (21-28) mmol/L Sodium 138 (135-149) mmol/L Potassium 3.3 L (3.6-5.1) mmol/L Chloride 110 (96-114) mmol/L Carbon Dioxide 19 L (20-32) mmol/L BUN 20 (5-24) mg/dL Creatinine 0.7 (0.5-1.5) mg/dL Estimated Creat Clear 96.86 Estimated GFR 116 ml/min Glucose 98 (60-115) mg/dL Lactate 1.7 (0.5-1.9) mmol/L Calcium 8.8 (8.4-10.6) mg/dL Total Bilirubin 0.9 (0.1-1.5) mg/dL AST 24 (12-35) U/L ALT 27 (4-35) U/L Alkaline Phosphatase 208 H (40-150) U/L Troponin I < 0.01 L (0.01-0.04) ng/mL C-Reactive Protein 38.4 H (0.5-1.0) mg/dL NT-Pro-B Natriuret Pep 2200 pg/mL Total Protein 6.4 (6.0-8.3) g/dL Albumin 3.0 L (3.3-5.0) g/dL Urine Color (Yellow) Urine Appearance (Clear) Urine pH (5.0-8.5) Ur Specific Perkins (1.000-1.030) Urine Protein (Negative) Urine Glucose (UA) (Negative) Urine Ketones (Negative) Urine Blood (Negative) Urine Nitrite (Negative) Urine Bilirubin (Negative) Urine Urobilinogen (0.2-1.0) Ur Leukocyte Esterase (Negative) Urine RBC (0-2) Urine WBC (0-5) Ur Squamous Epith Cells (None-Few) Urine Bacteria (None) SARS-CoV-2 (PCR) Negative SARS-CoV-2 (Negative) Influenza Type A (PCR) Negative PCR FLU A (Negative) Influenza Type B (PCR) Negative PCR FLU B (Negative) RSV (PCR) Negative PCR RSV (Negative) 04/23/22 04/23/22 Range/Units 12:15 15:43 WBC (4.50-11.00) K/uL RBC (4.00-5.20) m/uL Hgb (12.0-16.0) gm/dL Hct (33.0-51.0) % MCV (80-100) fL MCH (26-34) pg MCHC (32-36) gm/dL RDW Coeff of Jimmie (11.5-15.5) % Plt Count (140-440) K/uL Neut % (Auto) (42.0-72.0) % Lymph % (Auto) (20-44) % [place] % (Auto) (0.0-11.0) % Eos % (Auto) (0.0-7.0) % Baso % (Auto) (0.0-3.0) % Neut # (Auto) (1.7-7.0) K/uL Lymph # (Auto) (0.90-2.90) K/uL [place] # (Auto) (0.00-0.90) K/UL Eos # (Auto) (0.00-0.50) K/uL Baso # (Auto) (0.00-0.30) K/uL Diff Slide Review (Acceptable) ESR (2-20) mm/hr D-Dimer Quant (PE/DVT) (0.00-0.50) ug/ml VBG pH (7.32-7.43) VBG pCO2 (40-50) mmHG VBG pO2 (25-47) mmHG VBG HCO3 (21-28) mmol/L Sodium (135-149) mmol/L Potassium (3.6-5.1) mmol/L Chloride (96-114) mmol/L Carbon Dioxide (20-32) mmol/L BUN (5-24) mg/dL Creatinine (0.5-1.5) mg/dL Estimated Creat Clear Estimated GFR ml/min Glucose (60-115) mg/dL Lactate (0.5-1.9) mmol/L Calcium (8.4-10.6) mg/dL Total Bilirubin (0.1-1.5) mg/dL AST (12-35) U/L ALT (4-35) U/L Alkaline Phosphatase (40-150) U/L Troponin I (0.01-0.04) ng/mL C-Reactive Protein (0.5-1.0) mg/dL NT-Pro-B Natriuret Pep pg/mL Total Protein (6.0-8.3) g/dL Albumin (3.3-5.0) g/dL Urine Color Yellow Vicky A (Yellow) Urine Appearance Cloudy A Cloudy A (Clear) Urine pH 6.0 6.0 (5.0-8.5) Ur Specific Perkins 1.020 1.010 (1.000-1.030) Urine Protein 3+ A 3+ A (Negative) Urine Glucose (UA) Negative Negative (Negative) Urine Ketones 1+ A Trace A (Negative) Urine Blood 2+ A 1+ A (Negative) Urine Nitrite Negative Negative (Negative) Urine Bilirubin 1+ A Negative (Negative) Urine Urobilinogen 0.2 0.2 (0.2-1.0) Ur Leukocyte Esterase 1+ A Negative (Negative) Urine RBC >100 A 2-5 A (0-2) Urine WBC >100 A 2-5 (0-5) Ur Squamous Epith Cells None Few (None-Few) Urine Bacteria Moderate A Few A (None) SARS-CoV-2 (PCR) (Negative) Influenza Type A (PCR) (Negative) Influenza Type B (PCR) (Negative) RSV (PCR) (Negative) Imaging Data CT Chest/Ab/Pelvis: Attestation: I have reviewed the pertinent imaging results. Radiologist's impression: Patient: JOHNNY BILLS Facility: [facility] . Site : 1985 Study: CT Chest/Abd/Pelvis w/iv-04/23/2022 12:56:48 PM Ordering Physician: Joanne Luis Final Report: Indication: Tachycardia, chest pain, shortness of breath, abdominal pain and fever Technique: Volumetric multidetector CT images of the chest, abdomen, and pelvis were obtained after the administration of intravenous contrast. 95 cc Isovue 370 low osmolar intravenous contrast Comparison: None available. FINDINGS: CHEST The thoracic inlet is unremarkable. The thyroid gland is within normal limits. The thoracic aorta is nonaneurysmal. Respiratory motion artifact may limit evaluation of the distal-most subsegmental pulmonary arteries. There is no obvious central filling defect. There is no mediastinal, hilar, or axillary adenopathy. There are left greater than right basilar pleural effusions with adjacent compressive atelectasis versus infiltrates with diffusely increased interstitial markings likely representing pulmonary edema. The thoracic osseus structures are intact without fracture, lytic, or blastic lesion. The thoracic vertebral body heights are grossly maintained with mild straightening of the normal thoracic kyphosis. There is no significant spondylolisthesis or displaced fracture. ABDOMEN AND PELVIS The liver is normal in attenuation and size. The portal vein is patent. The spleen is normal in attenuation and size. There is a moderately hydropic appearance of the gallbladder. There is no radiopaque calculus. There is no intrahepatic or common ductal dilatation. There is a moderately distended stomach with thickening of the gastric antrum likely representing mild chronic gastritis and/or peptic ulcer disease changes. The pancreas is normal in enhancement without significant atrophy. The adrenal glands are unremarkable without evidence of adenoma. There is questionable streaky corticomedullary differentiation of the superior pole of the right kidney with mild urothelial enhancement. There are dilated fluid-filled loops of mid to distal small bowel with moderate gaseous distension of the proximal colon and decompressed appearance of the distal colon which may represent enterocolitis changes and/or ileus. There is a dilated appendix appreciated with minimal fluid distention measuring up to 10 millimeters. The abdominal aorta is nonaneurysmal with no significant atherosclerotic disease. There is a bulky appearance of the uterus consistent with status. Otherwise the pelvic viscera are grossly within normal limits. There are reactive central mesenteric lymph nodes. There is mild diastasis of the rectus musculature with bulging of the ventral abdomen. There are organizing fluid collection seen within the pelvis and cul-de-sac with minute mild peripheral rim enhancement likely representing early abscess formation. Additional fluid tracks along the pericolic gutters and perihepatic space. There is no intra-abdominal free air. The visualized osseous structures are grossly intact without evidence of displaced fracture, lytic or blastic lesion. The lumbar vertebral body heights are grossly maintained with mild straightening of the normal lumbar lordosis. Impression: 1. Evaluation of the pulmonary arteries is somewhat limited due to respiratory motion artifact without evidence of large central filling defect. 2. Left greater than right basilar pleural effusions with adjacent compressive atelectasis and/or infiltrates with consolidative opacities in the left greater than right lung bases. Likely mild superimposed pulmonary edema. 3. Moderate gaseous distention of the colon and stomach with nonspecific fluid-filled loops of distal small bowel which may represent enteritis and/or ileus changes. 4. Nonspecific fluid distention of the appendix measuring up to 10.3 millimeters which may represent secondary inflammatory changes from adjacent enterocolitis. A synchronous appendicitis is difficult to exclude. 5. Moderate fluid tracking along the pericolic gutters within the central pelvis and in the perihepatic space with suggestion of rim enhancement predominantly within the central pelvis which may represent early organization and/or abscess development. 6. Subtle streaky corticomedullary differentiation and urothelial enhancement of the right kidney which may represent superimposed underlying pyelonephritis changes. Correlate with urinalysis. Findings were discussed with Janelle Rubio at 2:06 p.m. April 23, [address] all [address] scans at this facility use dose modulation, iterative reconstruction, and/or weight-based dosing when appropriate to reduce radiation dose to as low as reasonably achievable. Dictated by Jose Wetzel MD @ 04/23/2022 2:14:02 PM (Electronic Signature) ECG Data Attestation: I personally reviewed and interpreted this ECG as follows: ( Sinus tachycardia, 119 beats per minute. Voltage criteria for LVH. No ischemic changes noted.) Prior ECG tracings: not available for review Critical Care Time Critical Care Time Critical Care Time: No Discharge Plan Discharge Clinical Impression: Pleural effusion, Abnormal CT of the chest, Abnormal CT of the abdomen, Sepsis, Abdominal pain, Chest pain Patient Disposition: [facility] Discharge Location: [facility] Condition: Unchanged Prescriptions: No Action prenat.vits,carlos,[id number] Tablet 1 tab PO QDAY ferrous sulfate 300 mg (60 mg iron)/5 mL liquid 300 mg PO QDAY acetaminophen 500 mg Tablet 1,000 mg PO Q6H PRN (Reason: pain/fever) Qty: 0 0RF docusate sodium 100 mg Capsule 100 mg PO BID 42 Days Qty: 100 0RF polyethylene glycol 3350 [Miralax] 17 gram Powder In Packet 17 g PO DAILY 42 Days Qty: 30 0RF Rx Instructions: Continue as necessary for constipation. ibuprofen 600 mg Tablet 600 mg PO Q6H PRNQty: 60 0RF Stand Alone Forms: MyHealth Info Instructions
--- NOTE | 2022-04-23 11:46 | CRLHL7_ITS ---
For Patients: As a result of the 21st Century Cures Act, medical imaging exams and procedure reports are released immediately into your electronic medical record. You may view this report before your referring provider. If you have questions, please contact your health care provider. Indication: Tachycardia, chest pain, shortness of breath, abdominal pain and fever Technique: Volumetric multidetector CT images of the chest, abdomen, and pelvis were obtained after the administration of intravenous contrast. 95 cc Isovue 370 low osmolar intravenous contrast Comparison: None available. FINDINGS: CHEST The thoracic inlet is unremarkable. The thyroid gland is within normal limits. The thoracic aorta is nonaneurysmal. Respiratory motion artifact may limit evaluation of the distal-most subsegmental pulmonary arteries. There is no obvious central filling defect. There is no mediastinal, hilar, or axillary adenopathy. There are left greater than right basilar pleural effusions with adjacent compressive atelectasis versus infiltrates with diffusely increased interstitial markings likely representing pulmonary edema. The thoracic osseus structures are intact without fracture, lytic, or blastic lesion. The thoracic vertebral body heights are grossly maintained with mild straightening of the normal thoracic kyphosis. There is no significant spondylolisthesis or displaced fracture. ABDOMEN AND PELVIS The liver is normal in attenuation and size. The portal vein is patent. The spleen is normal in attenuation and size. There is a moderately hydropic appearance of the gallbladder. There is no radiopaque calculus. There is no intrahepatic or common ductal dilatation. There is a moderately distended stomach with thickening of the gastric antrum likely representing mild chronic gastritis and/or peptic ulcer disease changes. The pancreas is normal in enhancement without significant atrophy. The adrenal glands are unremarkable without evidence of adenoma. There is questionable streaky corticomedullary differentiation of the superior pole of the right kidney with mild urothelial enhancement. There are dilated fluid-filled loops of mid to distal small bowel with moderate gaseous distension of the proximal colon and decompressed appearance of the distal colon which may represent enterocolitis changes and/or ileus. There is a dilated appendix appreciated with minimal fluid distention measuring up to 10 millimeters. The abdominal aorta is nonaneurysmal with no significant atherosclerotic disease. There is a bulky appearance of the uterus consistent with status. Otherwise the pelvic viscera are grossly within normal limits. There are reactive central mesenteric lymph nodes. There is mild diastasis of the rectus musculature with bulging of the ventral abdomen. There are organizing fluid collection seen within the pelvis and cul-de-sac with minute mild peripheral rim enhancement likely representing early abscess formation. Additional fluid tracks along the pericolic gutters and perihepatic space. There is no intra-abdominal free air. The visualized osseous structures are grossly intact without evidence of displaced fracture, lytic or blastic lesion. The lumbar vertebral body heights are grossly maintained with mild straightening of the normal lumbar lordosis. Impression: 1. Evaluation of the pulmonary arteries is somewhat limited due to respiratory motion artifact without evidence of large central filling defect. 2. Left greater than right basilar pleural effusions with adjacent compressive atelectasis and/or infiltrates with consolidative opacities in the left greater than right lung bases. Likely mild superimposed pulmonary edema. 3. Moderate gaseous distention of the colon and stomach with nonspecific fluid-filled loops of distal small bowel which may represent enteritis and/or ileus changes. 4. Nonspecific fluid distention of the appendix measuring up to 10.3 millimeters which may represent secondary inflammatory changes from adjacent enterocolitis. A synchronous appendicitis is difficult to exclude. 5. Moderate fluid tracking along the pericolic gutters within the central pelvis and in the perihepatic space with suggestion of rim enhancement predominantly within the central pelvis which may represent early organization and/or abscess development. 6. Subtle streaky corticomedullary differentiation and urothelial enhancement of the right kidney which may represent superimposed underlying pyelonephritis changes. Correlate with urinalysis. Findings were discussed with Janelle Rubio at 2:06 p.m. April 23, [address] note that all CT scans at this facility use dose modulation, iterative reconstruction, and/or weight-based dosing when appropriate to reduce radiation dose to as low as reasonably achievable. Dictated by Jose Wetzel MD @ 04/23/2022 2:14:02 PM (Electronically Signed)
[2022-04-23 12:23] LABS: HCO3 VBG 20 mmol/L (21-28); Lactate* 1.7 mmol/L (0.5-1.9); PCO2 VBG 37 mmHG (40-50); PO2 VBG 43.7 mmHG (25-47); pH VBG 7.333 (7.32-7.43)
[2022-04-23 12:25] LABS: Hematocrit 33.8 % (33.0-51.0); Hemoglobin* 11.2 gm/dL (12.0-16.0); Immature Granulocytes Pct Auto 4.8 %; Mean Corpuscular HGB Conc 33 gm/dL (32-36); Mean Corpuscular Hemoglobin 26 pg (26-34); Mean Corpuscular Volume 80 fL (80-100); Monocytes Percent Auto 0.8 % (0.0-11.0); Neutrophils Percent Auto 93.4 % (42.0-72.0); Platelet Count* 320 K/uL (140-440); Red Blood Count 4.24 m/uL (4.00-5.20); White Blood Count* 23.77 K/uL (4.50-11.00)
[2022-04-23 12:25] LABS: Appearance Urine Cloudy (Clear); Bilirubin Urine 1+ (Negative); Blood Urine 2+ (Negative); Color Urine Yellow (Yellow); Glucose Urine Negative (Negative); Ketones Urine 1+ (Negative); Leukocyte Esterase Urine 1+ (Negative); Nitrite Urine Negative (Negative); Protein Urine 3+ (Negative); Urobilinogen Urine 0.2 (0.2-1.0)
[2022-04-23] MEDS: 0.9 % SODIUM CHLORIDE 1000 ml 1,000 ML 500 ML IV ×2 (12:30→15:47)
[2022-04-23] MEDS: KETOROLAC 15 MG/ML inj IVP (12:30)
[2022-04-23 12:39] LABS: Chloride* 110 mmol/L (96-114)
[2022-04-23 12:40] LABS: Potassium* 3.3 mmol/L (3.6-5.1); Sodium* 138 mmol/L (135-149)
[2022-04-23 12:42] LABS: Bilirubin Total* 0.9 mg/dL (0.1-1.5); Creatinine* 0.7 mg/dL (0.5-1.5); Est. Creatinine Clearance* 96.86; Estimated Glomerular Filt Rate 116 ml/min; Slide Review Acceptable Review (Acceptable); Slide Review Reflex Yes
[2022-04-23 12:43] LABS: Alanine Aminotransferase* 27 U/L (4-35); Alkaline Phosphatase* 208 U/L (40-150); Aspartate Amino Transferase* 24 U/L (12-35); Blood Urea Nitrogen* 20 mg/dL (5-24); Calcium* 8.8 mg/dL (8.4-10.6); Carbon Dioxide* 19 mmol/L (20-32); Glucose* 98 mg/dL (60-115); Total Protein* 6.4 g/dL (6.0-8.3)
[2022-04-23 12:46] LABS: Bacteria Urine Moderate; RBC Urine >100 (0-2); WBC Urine >100 (0-5)
[2022-04-23 12:52] LABS: D Dimer Quantitative* 3.14 ug/ml (0.00-0.50)
[2022-04-23 12:54] LABS: NT Pro B Type NatriureticPept* 2200 pg/mL
[2022-04-23 12:57] LABS: Troponin I* < 0.01 ng/mL (0.01-0.04)
[2022-04-23 13:03] LABS: PCR FLU A Negative PCR FLU A (Negative); PCR FLU B Negative PCR FLU B (Negative); PCR RSV Negative PCR RSV (Negative)
[2022-04-23 13:06] LABS: SARS PCR* Negative SARS-CoV-2 (Negative)
[2022-04-23 13:09] LABS: Erythrocyte SedimentationRate* 89 mm/hr (2-20)
[2022-04-23 13:23] LABS: C Reactive Protein* 38.4 mg/dL (0.5-1.0)
[2022-04-23] MEDS: PIPERACILLIN/TAZOBACTAM 3.375 GM in 0.9 % SODIUM CHLORIDE Mini-bag 100 ML IVPB (14:41)
[2022-04-23] MEDS: ONDANSETRON 2 MG/ML inj 4 MG IVP (14:41)
[2022-04-23] MEDS: MORPHINE 2 MG/ML inj IVP (14:41)
[2022-04-23] MEDS: HYDROmorphone 0.5 mg/0.5 ml inj IVP (15:10)
[2022-04-23 15:54] LABS: Appearance Urine Cloudy (Clear); Bilirubin Urine Negative (Negative); Blood Urine 1+ (Negative); Color Urine Amber (Yellow); Glucose Urine Negative (Negative); Ketones Urine Trace (Negative); Leukocyte Esterase Urine Negative (Negative); Nitrite Urine Negative (Negative); Protein Urine 3+ (Negative); Urobilinogen Urine 0.2 (0.2-1.0)
--- NOTE | 2022-04-23 16:08 | PM.GYNCN1 ---
MARRIAGE AND FAMILY THERAPIST - CN: HPI Data of Consult Date Seen: 04/23/22 Patient: [facility] Patient Consult date: 04/23/22 Requesting Physician: Dr. Ventura Primary Care Provider: Jessy Olmos PA-C Consult Narrative Narrative: Chelsey Barber is a 36 year old female who is 10 days s/p normal spontaneous vaginal delivery at term. Delivery was complicated by a partial third-degree laceration. She otherwise had an uncomplicated course in the hospital. At 1st, she felt well. However, she developed fever Wed night. He she reports calling in with this symptom and being told that she should observe. She then developed pain in her low abdomen, which slowly moved up her abdomen. She is now having difficulty isolating where her pain is the worst. She currently reports pain in her lateral back on both sides, chest pain in her left chest, and pain with deep breathing. She felt a little bit better yesterday morning, but again worsened in the evening. Obstetric and gynecologic history: , with 3 spontaneous vaginal deliveries. Second child: Delivery complicated by shoulder dystocia No history of pelvic infection No history of abnormal Pap cc:: CC: Review of Systems Narrative: Positive for decreased appetite No nausea or vomiting Reports regular bowel movements Positive for left-sided chest pain Positive for pain with inspiration No breast pain No perineal pain Scant vaginal bleeding No dysuria Positive for fevers PFSH PFSH Medical History (Updated 04/23/22 @ 17:08 by Janelle Rubio MD) History of shoulder dystocia Vaginal delivery Surgical History No pertinent past surgical history Family History Father Dementia Maternal Grandmother Diabetes Mother Pulmonary embolism Family/Other Breast cancer Social History (Updated 04/23/22 @ 16:24 by Sarahi Bardales MD) Narrative: SOCIAL? She lives in [facility] with her and 3 kids, ages 6, 3, and 10 days. 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 Lives with: Gera & kids? Pets: not yet? Abuse: Denies past/present, feels safe with Special Diet: Vegetarian, no eggs, meat or fish? Ok with a blood transfusion: yes? Culture or taoism beliefs: denies? RISK FACTORS? 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 Depression/Anxiety: denies? Seat Belt Use: Routinely Smoking: Denies past/present? Alcohol/day: Denies while ? Caffeine: denies? Drug Use: Denies past/present? Chicken Pox: Yes as a child (positive titer) MRSA: Denies? Smoking Status: Never smoker How often do you have a drink containing alcohol: never AUDIT-C Alcohol total score: 0 Non-prescribed substance use: denies use Little interest or pleasure in doing things: not at all Feeling down, depressed, or hopeless: not at all service: No Meds Home Medications and Allergies Home Medications Medication Instructions Recorded Confirmed Type ferrous sulfate 300 mg (60 mg 300 mg PO QDAY 01/09/22 04/13/22 History iron)/5 mL oral liquid prenat.vits,carlos,[id number] 1 tab PO QDAY 01/09/22 04/13/22 History Allergies Allergy/AdvReac Type Severity Reaction Status Date / Time No Known Allergies Allergy Unknown Verified 04/12/22 10:23 MARRIAGE AND FAMILY THERAPIST - Exam Physical Exam: Vital signs: Temp Pulse Resp BP Pulse Ox O2 Del Method O2 Flow Rate 98.4 F 125 H 22 131/90 H 95 2 04/23/22 11:00 04/23/22 15:45 04/23/22 11:00 04/23/22 15:01 04/23/22 15:45 04/23/22 15:45 04/23/22 15:45 Narrative: General: No acute distress Psych: Alert and oriented x3, full affect HEENT: Normocephalic, atraumatic Neck: No cervical adenopathy, no thyromegaly Heart: Tachy but Regular rhythm, no murmur rub or gallop Lungs: Clear to auscultation bilaterally Abdomen: Distended and tympanic in upper abdomen. Fundus around umbilicus and nontender to palpation. Normoactive bowel sounds, soft, no rebound, or guarding, no masses, no hernias. Exam is performed after patient received IV morphine. Back: No CVA tenderness Skin: No lesions or rashes Lower extremities: No edema or erythema Pelvic exam: Mons normal, clitoris normal, urethral meatus normal. Labia minora and majora normal in appearance bilaterally. Perineum is healthy and intact. Anus normal appearance. Vaginal introitus normal appearance. MARRIAGE AND FAMILY THERAPIST - Results Labs Labs: Short CBC 04/23/22 Range/Units 12:05 WBC 23.77 H (4.50-11.00) K/uL Hgb 11.2 L (12.0-16.0) gm/dL Hct 33.8 (33.0-51.0) % Plt Count 320 (140-440) K/uL BMP 04/23/22 12:05 Sodium 138 Potassium 3.3 L Chloride 110 Carbon Dioxide 19 L BUN 20 Creatinine 0.7 Glucose 98 Calcium 8.8 Cardiac Enzymes 04/23/22 Range/Units 12:05 Troponin I < 0.01 L (0.01-0.04) ng/mL Liver Function 04/23/22 Range/Units 12:05 Total Bilirubin 0.9 (0.1-1.5) mg/dL AST 24 (12-35) U/L ALT 27 (4-35) U/L Alkaline Phosphatase 208 H (40-150) U/L Albumin 3.0 L (3.3-5.0) g/dL Urine 04/23/22 04/23/22 Range/Units 12:15 15:43 Urine Color Yellow Vicky A (Yellow) Urine Appearance Cloudy A Cloudy A (Clear) Urine pH 6.0 6.0 (5.0-8.5) Ur Specific [place] 1.020 1.010 (1.000-1.030) Urine Protein 3+ A 3+ A (Negative) Urine Glucose (UA) Negative Negative (Negative) Imaging CT Chest/Ab/Pelvis: Attestation: I have reviewed the pertinent imaging results. Radiologist's impression: Impression: 1. Evaluation of the pulmonary arteries is somewhat limited due to respiratory motion artifact without evidence of large central filling defect. 2. Left greater than right basilar pleural effusions with adjacent compressive atelectasis and/or infiltrates with consolidative opacities in the left greater than right lung bases. Likely mild superimposed pulmonary edema. 3. Moderate gaseous distention of the colon and stomach with nonspecific fluid-filled loops of distal small bowel which may represent enteritis and/or ileus changes. 4. Nonspecific fluid distention of the appendix measuring up to 10.3 millimeters which may represent secondary inflammatory changes from adjacent enterocolitis. A synchronous appendicitis is difficult to exclude. 5. Moderate fluid tracking along the pericolic gutters within the central pelvis and in the perihepatic space with suggestion of rim enhancement predominantly within the central pelvis which may represent early organization and/or abscess development. 6. Subtle streaky corticomedullary differentiation and urothelial enhancement of the right kidney which may represent superimposed underlying pyelonephritis changes. Correlate with urinalysis. Assessment and Plan Assessment and plan (1) Pulmonary edema: Status: Acute Assessment and Plan: Pro-BMP is markedly elevated, and pulmonary edema present. I am uncertain if this is related to cardiomyopathy or other systemic illness. She is currently requiring 2 L nasal cannula. ON unofficial bedside echo, I am told that contractility appears normal. She could have basilar pulmonary infiltrates secondary to intraabdominal infectious process, which I favor. (2) Status post normal vaginal delivery: Status: Acute Assessment and Plan: now 10 days . Her obstetrical laceration looks quite healthy. Her uterus is nontender to touch. I think it highly doubtful that the pelvic fluid collection mentioned in CT is related to endometritis / PID. This is an extremely unlikely ocurrence after an uncomplicated spontaneous labor and vaginal . (3) Third degree laceration of perineum during delivery, : Status: Acute (4) Abdominal pain: Status: Acute Assessment and Plan: I suspect intraabdominal source of infection. Should she stay here, I would favor exploratory laparotomy for evaluation with a colleague from general surgery. I agree with broad spectrum antibiotics as already begun by Dr. Ventura. (5) Flank pain: Status: Acute Assessment and Plan: Bilateral flank pain. Urine shows only small blood, few bacteria. Will follow up on urine culture results. Plan After my evaluation, Dr. Ventura was able to arrange transfer to [place].
--- NOTE | 2022-04-23 16:19 | ED.NURSE ---
Breast pump provided to pt. Help provided.
[2022-04-23 16:32] LABS: Bacteria Urine Few; Squamous Epithelial Cell Urine Few (None-Few)
[2022-04-23 16:45] LABS: INR 1.46 (0.91-1.10); Prothrombin Time 18.6 Seconds
[2022-04-23 16:46] LABS: Partial Thromboplastin Time* 41 Seconds (23-33)
--- NOTE | 2022-04-23 18:01 | ED.NURSE ---
has had dilaudid 0.5 mg at 1715. was transferred to [facility] 1730.
[2022-04-25] MEDS: HYDROmorphone 0.5 mg/0.5 ml inj IV (14:22)
== END 2022-04-23 17:30 | disposition short-term general hospital (02) ==
PROVIDERS: Emergency Provider Family Medicine; PCP Physician Assistant Medical
DX: R10.9 Unspecified abdominal pain (principal); J90 Pleural effusion, not elsewhere classified; A41.9 Sepsis, unspecified organism; R07.9 Chest pain, unspecified
CPT/HCPCS: 36415; 51702; 71260; 74177; 80053; 81001; 81003; 81015; 82803; 83605; 83880; 84484; 85025; 85379; 85610; 85651; 85730; 86140; 87040; 87077; 87086; 87186; 87502; 87634; 87635; 93005; 94761; 99285; J1170; J1885; J2270; J2405; J2543; J3370; J7030; J7120; Q9967

== ENCOUNTER 2022-04-23 17:11 | Outpatient (CLI) | payer BC, MEDICAID, SELFPAY | END 2022-04-23 17:12 | disposition home or self-care (01) | LOC: AMB 04-25 00:38 | PROVIDERS: PCP Physician Assistant Medical; Visit Provider Emergency Medicine Emergency Medical Services | DX: O85 Puerperal sepsis (principal) | CPT/HCPCS: A0425; A0426; A0428 ==

== ENCOUNTER 2022-09-11 15:30 | Outpatient (RCR) | payer BC, MEDICAID, SELFPAY | END 2023-01-09 23:59 | disposition home or self-care (01) | PROVIDERS: PCP Physician Assistant Medical; Visit Provider Advanced Practice Midwife | DX: R32 Unspecified urinary incontinence (principal); R27.8 Other lack of coordination; Z51.89 Encounter for other specified aftercare | CPT/HCPCS: 97110; 97112; 97140; 97162; 97535 ==

== ENCOUNTER 2023-01-24 15:04 | Outpatient (CLI) | payer BC, SELFPAY | END 2023-01-24 15:05 | disposition home or self-care (01) | PROVIDERS: PCP Family Medicine; Visit Provider Family Medicine | DX: D61.818 Other pancytopenia (principal); R53.83 Other fatigue | CPT/HCPCS: 80061; 82306; 84443 ==

== ENCOUNTER 2024-10-04 16:32 | Outpatient (CLI) | payer OTHER, SELFPAY | END 2024-10-04 16:33 | disposition home or self-care (01) | PROVIDERS: PCP Family Medicine; Visit Provider Family Medicine | DX: Z00.00 Encounter for general adult medical examination without abnormal findings (principal); D64.9 Anemia, unspecified; R79.89 Other specified abnormal findings of blood chemistry; Z13.21 Encounter for screening for nutritional disorder | CPT/HCPCS: 80061; 82306; 82607; 82728 ==

== ENCOUNTER 2024-12-23 07:12 | Outpatient (CLI) | payer OTHER, SELFPAY ==
--- NOTE | 2024-12-23 07:15 | CRLHL7_ITS ---
For Patients: As a result of the Century Cures Act, medical imaging exams and procedure reports are released immediately into your electronic medical record. You may view this report before your referring provider. If you have questions, please contact your health care provider. OB ULTRASOUND LESS THAN 14 WEEKS CLINICAL HISTORY: Dating and viability. TECHNIQUE: Real time godoy scale imaging of the fetus was performed. Transabdominal imaging performed. COMPARISON: None. FINDINGS: Imaging: TA. LMP: 10/31/2024. KAILA by LMP: 08/07/2025. GA: 7 weeks 4 days. CRL: 1.6 cm, 8 weeks 0 days. KAILA 08/04/2025. FHR: 163 bpm. GEST SAC: 3.5 cm, appears WNL. YOLK SAC: 2.7 mm, appears WNL. RIGHT OV: 4.0 x 1.4 x 1.7 cm. LEFT OV: 4.3 x 1.9 x 1.9 cm. CL. IMPRESSION: 1. Single living intrauterine measures 8 weeks 0 days with sonographic due date 08/04/2025. 2. Curvilinear subchorionic hemorrhage measures 1.4 x 3.5 x 0.3 cm. Jimenez Goins M.D. Diagnostic Radiologist [email or web address] Transcribed: 10:18 am DW/Dictated by: Jimenez Goins MD @ 12/23/2024 7:52:00 AM (Electronically Signed)
== END 2024-12-23 07:13 | disposition home or self-care (01) ==
LOC: US 07:12
PROVIDERS: PCP Family Medicine; Visit Provider Physician Assistant
DX: O20.9 Hemorrhage in early pregnancy, unspecified (principal); Z3A.08 8 weeks gestation of pregnancy; O09.521 Supervision of elderly multigravida, first trimester
CPT/HCPCS: 76801; 83021; 86592; 86703; 86704; 86706; 86762; 86787; 86803; 86850; 87086; 87340

== ENCOUNTER 2024-12-23 08:11 | Outpatient (CLI) | payer OTHER, SELFPAY | END 2024-12-23 08:12 | disposition home or self-care (01) | PROVIDERS: PCP Family Medicine; Visit Provider Physician Assistant | DX: O09.521 Supervision of elderly multigravida, first trimester (principal); Z3A.01 Less than 8 weeks gestation of pregnancy | CPT/HCPCS: 83020; 83021; 85660; 86592; 86703; 86704; 86706; 86762; 86787; 86803; 86850; 87086; 87340 ==